=== PATIENT | female | born 1970 | race Caucasian/White ===

== ENCOUNTER 2017-11-18 10:10 | Day surgery (SDC) | payer OTHER ==
[~2017-11-18] VITALS: Ht 149.9 cm; Wt 63.5 kg
[2017-11-18] MEDS: LIDOCAINE 2% 100 MG/5 ML UJET TP ONE (11:36)
[2017-11-18] MEDS: KETOROLAC 30 MG/ML VIAL ONE (11:36)
== END 2017-11-18 12:22 | disposition home or self-care (01) ==
LOC: MDS 10:10 → MMU 10:11 → MDS 12:22
PROVIDERS: ATTEND Internal Medicine Gastroenterology
DX: K57.30 Diverticulosis of large intestine without perforation or abscess without bleeding (principal); K64.8 Other hemorrhoids; E66.3 Overweight; Z98.890 Other specified postprocedural states; Z79.899 Other long term (current) drug therapy; Z68.27 Body mass index [BMI] 27.0-27.9, adult
CPT/HCPCS: 45378; J1885

== ENCOUNTER 2023-12-28 10:56 | Day surgery (SDC) | payer OTHER ==
[~2023-12-28] VITALS: Ht 149.9 cm; Wt 68.0 kg
[2023-12-28] MEDS ORDERED: SODIUM PHOSPHATE 118 ML ENEM RC ONE (11:30)
[2023-12-28] MEDS: MINERAL OIL 135 ML ENEM RC ONE (11:35)
[2023-12-28] MEDS ORDERED: LIDOCAINE 2% 100 MG/5 ML UJET TP ONE (13:02)
[2023-12-28] MEDS ORDERED: fentaNYL citrate 0.05 MG/ML VIAL ONE (13:02)
[2023-12-28] MEDS: fentaNYL citrate 0.05 MG/ML VIAL IVP ONE (13:56)
== END 2023-12-28 14:25 | disposition home or self-care (01) ==
LOC: MDS 10:56 → MMU 10:57 → MDS 14:25
PROVIDERS: ATTEND Internal Medicine Gastroenterology
DX: R19.5 Other fecal abnormalities (principal); K57.30 Diverticulosis of large intestine without perforation or abscess without bleeding; K21.9 Gastro-esophageal reflux disease without esophagitis; F32.A Depression, unspecified; E03.9 Hypothyroidism, unspecified; Z98.891 History of uterine scar from previous surgery; Z98.51 Tubal ligation status; Z79.890 Hormone replacement therapy; Z98.890 Other specified postprocedural states
CPT/HCPCS: 45378; J3010